=== PATIENT | male | born 1965 | race Caucasian/White ===

== ENCOUNTER 2025-02-13 09:31 | Outpatient (CLI) | payer MEDICARE, MEDICAID ==
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
== END 2025-02-13 23:59 | disposition home or self-care (01) ==
LOC: RAD 09:31
PROVIDERS: ATTEND Nurse Practitioner
DX: M19.072 Primary osteoarthritis, left ankle and foot (principal); T14.8XXA Other injury of unspecified body region, initial encounter; X58.XXXA Exposure to other specified factors, initial encounter; Y93.89 Activity, other specified; Y92.89 Other specified places as the place of occurrence of the external cause; Y99.8 Other external cause status
CPT/HCPCS: 73590